=== PATIENT | female | born 2000 | race African-American/Black ===

== ENCOUNTER 2018-12-25 15:01 | Emergency (ER) | payer OTHER ==
--- NOTE | 2018-12-25 15:25 | ED ---
Back Pain - HPI Summary HPI Summary: 18 year old female presents with back pain today. she states she was bending down to put something in a drawer when she felt a pain in her back. pain is 10 out of 10. did not take anything for the pain. states had to lie down after develop pain and is unable to ambulate due to pain. states feels like muscle spasm. states tingling does go down her bilateral legs. no urinary symptoms. no fevers. no loss of bowel or bladder. no saddle anaesthesia. has history of back pain. - History of Current Complaint Chief Complaint: EDBackInjuryPain Stated Complaint: BACK PAIN PER EMS Time Seen by Provider: 12/25/18 15:05 Pain Intensity: 10 - Allergies/Home Medications Allergies/Adverse Reactions: Allergies Allergy/AdvReac Type Severity Reaction Status Date / Time No Known Allergies Allergy Verified 12/25/18 15:06 PMH/Surg Hx/FS Hx/Imm Hx Endocrine/Hematology History: Denies: Hx Anticoagulant Therapy Respiratory History: Denies: Hx Asthma Infectious Disease History: No Infectious Disease History: Denies: Traveled Outside the [place] in Last 30 Days - Family History Known Family History: Positive: Non-Contributory - Social History Alcohol Use: None Substance Use Type: Reports: None Smoking Status (MU): Never Smoked Tobacco Review of Systems Negative: Fever Negative: Chest Pain Negative: Shortness Of Breath Positive: Myalgia - back pain All Other Systems Reviewed And Are Negative: Yes Physical Exam Triage Information Reviewed: Yes Vital Signs On Initial Exam: Initial Vitals Temp Pulse Resp BP Pulse Ox 98.8 F 90 16 105/86 99 12/25/18 15:03 12/25/18 15:03 12/25/18 15:03 12/25/18 15:03 12/25/18 15:03 Vital Signs Reviewed: Yes Appearance: Positive: Well-Appearing Skin: Positive: Warm, Dry Head/Face: Positive: Normal Head/Face Inspection Eyes: Positive: Normal, Conjunctiva Clear ENT: Positive: Pharynx normal Respiratory/Lung Sounds: Positive: Clear to Auscultation, Breath Sounds Present Cardiovascular: Positive: Normal, RRR Musculoskeletal: Positive: Limited @ - back pain, Other - tenderness of lower back, Neurological: Positive: Normal Psychiatric: Positive: Normal Diagnostics - Vital Signs Vital Signs Temp Pulse Resp BP Pulse Ox 12/25/18 15:03 98.8 F 90 16 105/86 99 - Laboratory Lab Statement: Any lab studies that have been ordered have been reviewed, and results considered in the medical decision making process. - Radiology back Radiology Interpretation Completed By: Radiologist Summary of Radiographic Findings: IMPRESSION: #. Negative radiographic exam of the lumbar sacral spine. Re-Evaluation - Re-Evaluation First Eval Re-Evaluation Time: 17:32 Change: Improved Comment: feeling better Back Pain Course/Dx - Course Course Of Treatment: 18 year old female presents with back pain today. she states she was bending down to put something in a drawer when she felt a pain in her back. pain is 10 out of 10. did not take anything for the pain. states had to lie down after develop pain and is unable to ambulate due to pain. states feels like muscle spasm. states tingling does go down her bilateral legs. no urinary symptoms. no fevers. no loss of bowel or bladder. no saddle anaesthesia. has history of back pain. on exam tenderness lower back. neg SLR, sensation grossly intact, xray shows no fx. urine shows no infection. feeling better. able to ambulate. will have follow up with [facility]. patient understand and agrees with plan. - Diagnoses Differential Diagnosis/HQI/PQRI: Positive: Herniated Disc, Strain, Sprain Provider Diagnoses: Back pain Discharge ED - Sign-Out/Discharge Documenting (check all that apply): Patient Departure Patient Received Moderate/Deep Sedation with Procedure: No - Discharge Plan Condition: Good Disposition: HOME Prescriptions: Cyclobenzaprine TAB* [Flexeril 10 MG TAB*] 10 mg PO TID PRN #15 tab PRN Reason: Pain - Moderate Patient Education Materials: Back Pain (ED) Referrals: [facility] - [facility] [place] [Primary Care Provider] - Additional Instructions: Take muscle relaxers three times a day Use ibuprofen or Tylenol for pain every 6 hours ice/heat area, move as much as possible Follow up with [facility] within 5 days Return to ED if develop any new or worsening symptoms - Billing Disposition and Condition Condition: GOOD Disposition: Home
[2018-12-25] MEDS ORDERED: Ketorolac INJ* 30 MG/ML 1 ML VIAL IM ONE (15:31)
[2018-12-25] MEDS ORDERED: Diazepam TAB(*) 5 MG PO ONE (15:31)
[2018-12-25 15:36] LABS: Urine Appearance Clear; Urine Bilirubin Negative (Negative); Urine Blood Negative (Negative); Urine Color Yellow; Urine Glucose Negative (Negative); Urine Ketones Negative (Negative); Urine Nitrite Negative (Negative); Urine Protein Negative (Negative); Urine Specific Gravity 1.012 (1.010-1.030); Urine Urobilinogen Negative (Negative)
[2018-12-25] MEDS ORDERED: Lidocaine PATCH 5%* 1 PATCH TRANSDERM SCH (16:00)
[2018-12-25 17:40] VITALS: BP 113/88
[2018-12-25] MEDS ORDERED: Lidocaine Patch REMOVE* 1 NOTE MISC SCH (21:00)
== END 2018-12-25 17:38 | disposition home or self-care (01) ==
LOC: ED 15:01
DX: M54.9 Dorsalgia, unspecified (principal)
CPT/HCPCS: 72110; 81003; 96372; 99282; A9270-GY; J1885